=== PATIENT | male | born 1960 | race Caucasian/White ===

== ENCOUNTER 2017-08-13 18:12 | Emergency (ER) | payer OTHER ==
[2017-08-13] MEDS ORDERED: NS 1,000 ML IV ONE (18:20)
[2017-08-13] MEDS ORDERED: fentaNYL 100 MCG/2 ML INJ IVP ONE (18:20)
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
[2017-08-13 18:30] LABS: PLATELET COUNT 261 10^3/uL (150-400)
[2017-08-13 18:39] LABS: INR 0.97 (0.83-1.16); PROTIME(PATIENT) 13.1 SEC (12.0-15.0)
[2017-08-13] MEDS ORDERED: TDAP ADULT 0.5 ML INJ (BOOSTRIX) IM ONE (18:49)
[2017-08-13 19:27] VITALS: BP 172/89
== END 2017-08-13 19:26 | disposition home or self-care (01) ==
LOC: EDUNIT#
DX: S06.0X1A Concussion with loss of consciousness of 30 minutes or less, initial encounter (principal); S43.101A Unspecified dislocation of right acromioclavicular joint, initial encounter; E86.9 Volume depletion, unspecified; Z23 Encounter for immunization; V17.4XXA Pedal cycle driver injured in collision with fixed or stationary object in traffic accident, initial encounter; Y92.488 Other paved roadways as the place of occurrence of the external cause; Y99.8 Other external cause status; Y93.55 Activity, bike riding
CPT/HCPCS: A4565; G0480